=== PATIENT | male | born 1945 | race Caucasian/White ===

== ENCOUNTER 2016-12-25 20:56 | Inpatient (IN) | payer MEDICARE, BC ==
[~2016-12-25] VITALS: Ht 180.3 cm; Wt 84.3 kg
[2016-12-25] MEDS ORDERED: LEVOTAB10 PO (21:24)
[2016-12-25] MEDS ORDERED: SIMV20TA2 PO (21:24)
[2016-12-25] MEDS ORDERED: AMLO5TAB2 PO (21:24)
[2016-12-25] MEDS ORDERED: LEVO125T3 PO (21:24)
[2016-12-25] MEDS ORDERED: ESCI20TA PO (21:24)
[2016-12-25] MEDS ORDERED: COMBAER6 INH (21:24)
[2016-12-25] MEDS ORDERED: AZEL0.055 (21:24)
[2016-12-25] MEDS ORDERED: LOSA50TA20 PO (21:24)
[2016-12-25] MEDS ORDERED: MORPHINE 2 MG/ML 1ML SYRINGE IM ONE (21:30)
--- NOTE | 2016-12-25 22:50 | REPUSA ---
CT of the head Clinical history: trauma. Technique: Multiple axial CT images were obtained through the head without administration of contrast . Findings: The ventricles and sulci are symmetric bilaterally. There is no evidence of acute hemorrhag e or infarct. There is no midline shift, mass effect, or extra-axial fluid collection. The osseous st ructures are unremarkable. The visualized paranasal sinuses and mastoid air cells are clear. Impression: Negative study.
--- NOTE | 2016-12-25 23:00 | REPUSA ---
CT of the cervical spine Clinical history: Pain. Technique: Multiple axial CT images were obtained through the cervical spine without administration o f contrast. Coronal and sagittal 3-D reconstructed images were also obtained. Comparison: None. Findings: The cervical vertebral bodies are in satisfactory positioning and alignment. No fractures or dislocat ions are demonstrated. The odontoid process is intact. Intervertebral disc spaces are early narrowed at C4/C5, C5/C6, and C6/C7. Disc osteophyte complexes are noted at these levels. There is no evidence of facet subluxation. The neural foramen appear grossly patent. The cervical cranial junction is int act. The cervical spinal canal demonstrates normal caliber and contour without evidence of spinal isadora nosis. The surrounding soft tissues are within normal limits. Impression: No acute fracture or traumatic injury. Just osteophyte complexes with degenerative disc d isease at C4/C5, C5/C6, and C6/C7.
[2016-12-25] MEDS ORDERED: NORCO, ANEXSIA 5/325MG TABLET (HYDROcodone/ACETAMINOPHEN) PO ONE (23:15)
[2016-12-25] MEDS ORDERED: HYDROmorphone HCL 1 MG/ML SYRINGE (J1170) IM ONE (23:30)
[2016-12-26] VITALS (8 sets, daily range): BP systolic 113–142; BP diastolic 75–95
[2016-12-26] MEDS ORDERED: NALOXONE INJ 2 MG/2 ML SYRINGE (J2310) IV STA (00:49)
[2016-12-26 01:20] LABS: BASO # 0.1 K/mm3 (0.0-0.2); BASO % 0.7 % (0.0-1.0); EOS # 0.1 K/mm3 (0.0-0.50); EOS % 0.6 % (0.0-3.0); LARGE UNSTAINED CELL # 0.2 K/mm3 (0.0-0.4); LARGE UNSTAINED CELL % 1.1 % (0.0-4.0); LYMPH # 1.4 K/mm3 (1.5-4.5); LYMPH % 10.7 % (24.0-44.0); MEAN CORPUSCULAR HEMOGLOBIN 31.5 pg (27.0-33.0); MEAN CORPUSCULAR HGB CONC 33.8 g/dl (32.0-36.5); MEAN CORPUSCULAR VOLUME 93.3 fl (80.0-96.0); MONO # 0.6 K/mm3 (0.0-0.8); MONO % 4.5 % (0.0-5.0); NEUTROPHILS # 11.1 K/mm3 (1.8-7.7); NEUTROPHILS % 82.4 % (36.0-66.0); PLATELET COUNT, AUTOMATED 303 k/mm3 (150-450); RED CELL DISTRIBUTION WIDTH 12.9 % (11.5-14.5); WHITE BLOOD COUNT 13.4 K/mm3 (4.0-10.0)
[2016-12-26 01:46] LABS: ALBUMIN/GLOBULIN RATIO 1.14 (1.00-1.93); ALKALINE PHOSPHATASE 86 U/L (45-117); ALT/SGPT 43 U/L (12-78); ANION GAP 9 MEQ/L (8-16); AST/SGOT 49 U/L (15-37); BILIRUBIN,DIRECT 0.1 MG/DL (0.0-0.2); BILIRUBIN,TOTAL 0.4 MG/DL (0.2-1.0); BLOOD UREA NITROGEN 12 MG/DL (7-18); CALCIUM LEVEL 8.2 MG/DL (8.8-10.2); CARBON DIOXIDE LEVEL 29 MEQ/L (21-32); CHLORIDE LEVEL 103 MEQ/L (98-107); CREATININE FOR GFR 0.94 MG/DL (0.70-1.30); GLOMERULAR FILTRATION RATE > 60.0 (>42); GLUCOSE, FASTING 151 MG/DL (83-110); POTASSIUM SERUM 4.3 MEQ/L (3.5-5.1); SODIUM LEVEL 141 MEQ/L (136-145); TOTAL PROTEIN 7.5 GM/DL (6.4-8.2)
[2016-12-26] MEDS ORDERED: BISACODYL 5 MG TAB PO PRN (03:00)
[2016-12-26] MEDS ORDERED: ONDANSETRON 4MG/2ML VIAL (J2405) IV PRN (03:00)
[2016-12-26] MEDS ORDERED: ACETAMINOPHEN TAB 650MG DOSE (2X325MG) PO PRN (03:00)
[2016-12-26] MEDS ORDERED: IPRATROPIUM 0.5MG/ALBUTEROL 2.5MG INH SOL UD 3ML (DUONEB)(J7620) INH PRN (03:15)
[2016-12-26] MEDS: PERCOCET 5MG/325MG TAB PO PRN ×4 (03:52→22:10)
--- NOTE | 2016-12-26 05:13 | HPE ---
DATE OF ADMISSION: 12/26/2016 PRIMARY CARE PROVIDER: Elidia Cedillo DO. Patient is seen by orthopedics in [place] for knee injection. CODE STATUS: FULL CODE. CHIEF COMPLAINT: One episode of syncope and head trauma due to the fall. HISTORY OF PRESENT ILLNESS: Mr. Rodrigez is a 71-year-old male with multiple past medical history who presented to the emergency room (ER) due to experiencing one episode of syncope when he had severe cough. Patient is accompanied by his , who expressed that patient had several episodes of syncope in the past 2 years and all happening with the coughing; however, the reason that patient came today because he "hit his head to the door when he fell". Patient's said before the syncope episode he was sitting on the couch and watching television when coughing started. Patient stood up to go the bathroom; however, patient expressed that he lost his consciousness. Patient's cannot remember exactly how long, but it was several minutes. After patient gained his consciousness, the first question that he asked was "where am I", but he immediately became oriented. Patient denies chest pain, palpitations, racing or skipping heartbeat, lightheadedness or dizziness before the syncopal episode; however, patient expressed that after having cough, he became lightheaded and he believes that the coughing caused him to lose his consciousness. Patient also denied having any seizure type activities and his did not notice any seizure type activity. Patient did not lose his bowel or bladder control. Patient did not have fever, chills or night sweats. Patient reported pain in the back of the skull and posterior area of the skull and the neck area after the fall. Pain is 7/10, stationary and increased by patient sitting forward or standing. Therefore, patient preferred to lay down. PAST MEDICAL HISTORY: 1. Chronic obstructive pulmonary disease (COPD). 2. Hypothyroidism. 3. Depression. 4. Anxiety. 5. Hypertension. 6. Hyperlipidemia. 7. Prostate cancer. PAST SURGICAL HISTORY: Prostate surgery. HOME MEDICATIONS: - Combivent one puff inhaler four times a day as needed for shortness of breath - amlodipine besylate 5 mg by mouth nightly - azelastine two sprays nasally daily - escitalopram 20 mg by mouth daily - levocetirizine 5 mg by mouth nightly - Synthroid 125 mcg by mouth daily - losartan 50 mg by mouth nightly - simvastatin 20 mg by mouth nightly ALLERGIES: No known drug allergies. FAMILY HISTORY: Patient has two daughters. One of his daughters had subarachnoid hemorrhage. Patient has five brothers and sisters, who are healthy for their age. Patient's mother at age 78. Patient's father at age 46 due to heart disease. REVIEW OF SYSTEMS: GENERAL: Patient denies fevers, chills, night sweats. HEENT: Patient denies acute vision or hearing changes; however, patient has pain in the posterior area of the skull, as well as neck and shoulder due to the fall and also patient has some sinusitis. NECK: Patient denies lumps, bumps or decreased range of motion of his neck. LUNGS: Patient denies shortness of breath; however, patient has chronic productive cough due to COPD. Patient expressed that sputum is clear and sometimes yellow. HEART: Patient denies palpitations or racing or skipping heartbeat or chest pain. ABDOMEN: Patient denies abdominal pain, nausea, vomiting, diarrhea, constipation, melena, hematochezia, or hemoptysis. NEUROLOGIC: Patient denies a history of transient ischemic attack (TIA), CVA, or seizure type activities. PHYSICAL EXAMINATION: VITAL SIGNS: Temperature 98.2, pulse 84, respiratory rate 18, blood pressure 134/82, pulse oximetry 92% on room air. HEENT: Normocephalic, atraumatic. No bruises or erythema in the skull or neck area. Pupils are equal and reactive to light. Oral mucosa is moist. NECK: Soft, supple. The patient has mild tenderness to palpation of the neck posteriorly around C2 to C6. LUNGS: Patient has scattered rhonchi at the base of the lung. Both inhale and exhale mild wheezing. HEART: Regular rate and rhythm. Normal S1, S2. ABDOMEN: Soft, nontender, positive bowel sounds in all quadrants. NEUROLOGICAL: Cranial nerves II-XII intact. No focal deficiencies. EXTREMITIES: No lower extremity edema, +2 pulses in both upper and lower extremities. Normal range of motion both upper and lower extremities. LABORATORY DATA: Sodium 141, potassium 4.3, chloride 103, carbon dioxide 29, anion gap 9, BUN 12, creatinine 0.94, glomerular filtration rate more than 60, fasting glucose 151, calcium 8.2, total bilirubin 0.4, direct bilirubin 1.1, AST 49, ALT 43, alkaline phosphatase 86, ammonia 19, troponin I less than 0.02, total protein 7.5, albumin 4. White blood cells 13.4, red blood cells 4.93, hemoglobin 15.5, hematocrit 46, MCV 93.3, MCH 31.5, MCHC 33.8, RDW 12.9, platelet count 330. Neutrophil percentage 82.4, lymphocyte percentage 10.7, monocyte percentage 4.5, eosinophil percentage 0.6, basophil percentage 0.7, leukocyte percentage 1.1. IMAGING TECHNIQUES: CT of the head without contrast was negative for any new pathology. CT of spine, cervical without contrast, shows no acute fracture or trauma injuries, just osteophyte complexes with degenerative disc disease at C4-C5, C5-C6 and C6-C7. ASSESSMENT AND PLAN: 1. Syncope. This is possibly vasovagal due to severe coughing; however, due to the possibility including cardiac and neurological abnormalities, we have ordered cardiac markers and the first set of cardiac markers was negative. Also, I have ordered EKG and the result is pending at this time. CT was negative for any new pathology. I have ordered MRI/MRA and the result is pending at this time. also I have ordered orthostatic vital and the result is pending. Patient will be admitted for observation. 2. Chronic obstructive pulmonary disease (COPD). At this time, we will continue patient on his current breathing treatments. Patient is on room air at this time and his symptoms are controlled. No further medication is required at this time. 3. Hypothyroidism. We will continue patient on home dosage of Synthroid (0.125 mg by mouth daily). 4. Depression and anxiety. We will continue patient on Lexapro 20 mg daily. 5. Hypertension. We will continue patient on Norvasc 5 mg nightly and Cozaar 50 by mouth nightly. 6. Hyperlipidemia. We will continue patient on Zocor 20 mg nightly. 7. Deep venous thrombosis (DVT) prophylaxis. I have started the patient on Lovenox 40 mg subcutaneously daily. My preceptor for this patient encounter was Dr. Ji Olmos. The preceptor was physically present in the building during the encounter and was fully available as needed. All aspects of the patient interview, examination, medical decision making process, and medical care plan development were reviewed and approved by the preceptor. The preceptor is aware and concurs with the plan as stated in the body of this note and will attest to such by his/her co-signature. NICOLE
[2016-12-26] MEDS: LEVOTHYROXINE 0.125 MG TAB (125 MCG) PO SCH (05:15)
[2016-12-26] MEDS: NS 0.45% 1,000 ML IV SCH ×2 (06:45→22:09)
[2016-12-26] MEDS: ENOXAPARIN 40 MG/0.4 ML SYRINGE (J1650) SC SCH (08:23)
[2016-12-26] MEDS: ESCITALOPRAM OXALATE 10 MG TAB (LEXAPRO) PO SCH (08:24)
[2016-12-26 09:55] LABS: PROLACTIN 24.1 NG/ML (2.1-17.7)
--- NOTE | 2016-12-26 10:19 | REP ---
MR BRAIN WITHOUT CONTRAST: HISTORY: Syncope. COMPARISON: CT 12/25/2016 Areas of increased signal intensity on T2-weighed images are present in the periventricular and subcortical white matter and darius. This represents small vessel ischemic disease. There is no intraparenchymal hemorrhage, infarct, mass or midline shift. The ventricular system and cortical sulci are dilated consistent with minimal volume loss. There is no extracerebral collection. The sinuses are clear. IMPRESSION: 1. Small vessel ischemic disease. 2. Minimal volume loss. Signed by Nazario Sinclair MD 12/26/2016 11:07 A
--- NOTE | 2016-12-26 10:21 | REP ---
MRA BRAIN WITHOUT CONTRAST: HISTORY: Syncope. 3D [id number] MR angiography was performed at the level of the [place]. There is no aneurysm or arteriovenous malformation. Mild atherosclerotic disease involves the cavernous internal carotid arteries. The major intracranial vessels are patent. The left vertebral artery is dominant. IMPRESSION: 1. There is no aneurysm or arteriovenous malformation. 2. Atherosclerotic disease as described above. Signed by Nazario Sinclair MD 12/26/2016 11:07 A
--- NOTE | 2016-12-26 13:42 | IPN ---
DATE: 12/26/2016 Patient seen and examined at the bedside. Chart has been reviewed. He had no repeat episodes of syncopal episodes overnight, no seizure activity. Telemetry was unremarkable and remains sinus rhythm. Ventricular rate of 76-88. Per the patient has a chronic cough and had a coughing spell yesterday, unchanged from his normal and had a syncopal episode, loss of consciousness for a few minutes after hitting his head and hit his head against the back of the door. He had a quick period of confusion and was asking where he was, but came around quickly. He was brought into the emergency room. EKG was unremarkable and telemetry was unremarkable over night. CT of the head negative for acute CVA. Cervical spine CT shows no acute fracture. Patient is admitted for further evaluation of syncopal episode. He currently has no complaints of chest pain, pressure, or tightness, palpitations, lightheadedness or dizziness. He had a chronic cough which is productive of white sputum. No recent weight gain or weight loss, diarrhea, constipation, dysuria, urgency, frequency, changes in vision, ear fullness. Temperature 99.5, pulse 77, respiratory rate 18, blood pressure 113/88, 98% on room air. GENERALLY: Patient is awake, alert, oriented times three. Answering questions appropriately. Face is symmetric. No facial drooping. Tongue is midline. No dysmetria on finger to nose testing. Speech is fluent. Motor function is 5/5 time four extremities. Gait was not tested. No sensory disturbance. DTRs are intact 2+. Negative Babinski bilaterally. LUNGS: Clear to auscultation; no wheezing, rales, or rhonchi. HEART: S1, S2, sinus rhythm. ABDOMEN: Soft, nontender, nondistended, positive bowel sounds. EXTREMITIES: No pitting edema. White count 13, hemoglobin 15, hematocrit 46, platelet count 303, sodium 141, potassium 4.3, chloride 103, bicarbonate 29, BUN 12, creatinine 0.94, glucose of 151, calcium 8.2, total bilirubin 0.4, direct bilirubin 0.1, AST 49, ALT 43, alkaline phosphatase 86, ammonia of 19, total CK 2144 and B fraction is 55, troponin less than 0.02, prolactin 24.1. IMAGING STUDIES: MRI of the brain small vessel ischemic disease, minimal volume loss. MRA shows no aneurysm, atherosclerotic disease as described. ASSESSMENT AND PLAN: This is a 71-year-old male with history of chronic obstructive pulmonary artery disease (COPD), hypothyroidism, depression, anxiety, hypertension, hyperlipidemia, prostate cancer, prostate surgery who presents to the emergency room after a syncopal episode. Patient had an episode of severe cough accompanied with passing out, hitting his head on the door when he fell, with loss of consciousness of unknown duration. Patient denies any prodromal symptoms, was admitted for evaluation of syncopal episode. EKG was unremarkable, it showed sinus rhythm. CT of the head and cervical spine were unremarkable aside from chronic degenerative disc disease. MRI/MRA of the brain are negative. Prolactin slightly elevated. EEG has been ordered. Cardiac marker shows mild rhabdomyolysis. Echo is pending. IMPRESSION: 1. Syncope. Most likely vasovagal due to severe coughing. Continue with telemetry monitoring for 24-48 hours. Currently no arrhythmias are noted on telemetry, remains in sinus rhythm. Await echocardiogram report to rule out valvular disease or cause of patient's passing out. He denies any dizziness or lightheadedness. MRI/MRA of the brain are negative. Patient had loss of consciousness with confusion. EEG will be obtained as prolactin level is elevated. Should the EEG be abnormal or recurrent episode of syncopal episode with question of seizures we will consult neurology for antiepileptic medications. For now, I will await results of the EEG. 2. Chronic obstructive pulmonary artery disease (COPD). Continue on current breathing treatments. Appears to be comfortable on room air. No further medications required. Does not appear to be exhibiting exacerbation of chronic obstructive pulmonary artery disease (COPD). 3. Hypothyroidism. Resume home dose of Synthroid 0.125 daily. 4. Depression/anxiety. On Lexapro 20 daily. 5. Hypertension. Stable. Continue Norvasc and Cozaar. 6. Mild rhabdomyolysis. Mild hydration. Monitor patient's creatinine with repeat metabolic panel. If patient has worsening creatinine then we will discontinue patient's Cozaar and continue with IV fluid trial. 7. Hyperlipidemia. On Zocor. 8. Deep venous thrombosis (DVT) prophylaxis. On Lovenox.
--- NOTE | 2016-12-26 16:12 | ECHO ---
DATE OF PROCEDURE: 12/26/2016 REFERRING PHYSICIAN: Dr. Kathy Barrientos INDICATION: Syncope. HEIGHT: 180 cm. WEIGHT: 85.1 kg. 2D MEASUREMENTS: Aortic root: 4.0 cm at the level of the Vals[place] Left atrium: 3.1 cm Ventricular septum: 1.30 cm Posterior wall: 1.32 cm Left ventricle diastole: 4.2 cm Left ventricle systole: 2.2 cm Mild aortic regurgitation Aortic valve velocity 156 cm/s LVOT velocity: 109 cm/s LVOT/VTI: 20.5 cm Mitral E velocity: 73.4 cm/s Mitral A velocity: 101 cm/s Mitral deceleration time: 246 ms Very mild tricuspid regurgitation Estimated right ventricle systolic pressure 24 mmHg assuming a pressure of 5 mmHg. Very mild pulmonic regurgitation. Pulmonary artery systolic pressure 30 mmHg by pulmonary acceleration time method. MITRAL ANNULAR TISSUE DOPPLER: E-prime septal: 6.3 cm/s E-prime lateral: 1.0 cm/s DESCRIPTION: Rhythm was sinus. This is a moderately technically difficult echocardiogram. No pericardial effusion. This is a 2D, m-mode, color flow Doppler, and pulsed wave Doppler examination include mitral annular tissue Doppler. CONCLUSIONS: 1. Mild concentric left ventricle hypertrophy. Hyperdynamic left ventricle (LV) systolic function. Left ventricle ejection fraction (LVEF) 70% by visual estimate. No regional wall motion abnormalities. Grade 1 LV diastolic dysfunction (impaired relaxation filling pattern). 2. Mild dilatation of the aortic root at the level of the level Valsalva. 3. Mild aortic valve sclerosis of a three-cuspid aortic valve. Very mild aortic regurgitation. 4. Mild mitral annular calcification. No mitral regurgitation.
--- NOTE | 2016-12-26 17:47 | REP ---
CHEST, TWO VIEWS: Two views of the chest are performed and compared to prior study of 08/06/2011. There is mild scattered interstitial fibrosis without evidence of acute infiltrate. The heart is not significantly enlarged. Mediastinal silhouette is unchanged. There are mild degenerative changes of the spine. IMPRESSION: Mild chronic interstitial changes without evidence of acute infiltrate. Signed by Eric Pedersen MD 12/30/2016 03:58 P
[2016-12-26] MEDS: SIMVASTATIN 20 MG TAB PO SCH (22:10)
[2016-12-26] MEDS: amLODIPine 5 MG TAB PO SCH (22:12)
[2016-12-26] MEDS: LOSARTAN 50 MG TAB PO SCH (22:13)
--- NOTE | 2016-12-26 23:27 | ECGEPIP ---
Stationary ECG Study [facility] Test Date: 2016-12-26 Pat Name: RENETTA BATEMAN Department: Room: [place] [address] Gender: M [employer]: rosa : 1945 Requested By: CHARMAINE LOO Order Number: [id number] Reading MD: Heraclio Quesada Measurements Intervals Shiner Rate: 78 P: -14 AL: 123 QRS: 28 QRSD: 90 T: 71 QT: 358 QTc: 409 Interpretive Statements SINUS RHYTHM NO PRIOR TRACING IN THE SYSTEM Electronically Signed On 12-26-2016 23:26:47 EDT by Heraclio Quesada
[2016-12-27] VITALS: BP 130/80
[2016-12-27] MEDS: PERCOCET 5MG/325MG TAB PO PRN ×5 (03:55→20:19)
[2016-12-27 04:00] VITALS: BP 140/70
[2016-12-27 05:15] LABS: BASO # 0.1 K/mm3 (0.0-0.2); BASO % 0.8 % (0.0-1.0); EOS # 0.2 K/mm3 (0.0-0.50); EOS % 2.1 % (0.0-3.0); LARGE UNSTAINED CELL # 0.2 K/mm3 (0.0-0.4); LARGE UNSTAINED CELL % 2.1 % (0.0-4.0); LYMPH # 1.7 K/mm3 (1.5-4.5); LYMPH % 21.1 % (24.0-44.0); MEAN CORPUSCULAR HEMOGLOBIN 31.5 pg (27.0-33.0); MEAN CORPUSCULAR VOLUME 92.6 fl (80.0-96.0); MONO # 0.6 K/mm3 (0.0-0.8); MONO % 7.2 % (0.0-5.0); NEUTROPHILS # 5.4 K/mm3 (1.8-7.7); NEUTROPHILS % 66.7 % (36.0-66.0); PLATELET COUNT, AUTOMATED 240 k/mm3 (150-450); RED CELL DISTRIBUTION WIDTH 13.1 % (11.5-14.5)
[2016-12-27 05:32] LABS: ANION GAP 8 MEQ/L (8-16); BLOOD UREA NITROGEN 12 MG/DL (7-18); CALCIUM LEVEL 8.4 MG/DL (8.8-10.2); CARBON DIOXIDE LEVEL 27 MEQ/L (21-32); CHLORIDE LEVEL 104 MEQ/L (98-107); CREATININE FOR GFR 0.71 MG/DL (0.70-1.30); GLOMERULAR FILTRATION RATE > 60.0 (>42); GLUCOSE, FASTING 117 MG/DL (83-110); POTASSIUM SERUM 3.8 MEQ/L (3.5-5.1); SODIUM LEVEL 139 MEQ/L (136-145)
[2016-12-27] MEDS: LEVOTHYROXINE 0.125 MG TAB (125 MCG) PO SCH (06:12)
[2016-12-27 07:30] VITALS: BP 150/92
[2016-12-27] MEDS: ESCITALOPRAM OXALATE 10 MG TAB (LEXAPRO) PO SCH (07:55)
[2016-12-27] MEDS: ENOXAPARIN 40 MG/0.4 ML SYRINGE (J1650) SC SCH (07:56)
--- NOTE | 2016-12-27 08:51 | EEG ---
DATE OF PROCEDURE: 12/26/2016 REFERRING PROVIDER: Dr. Kathy Barrientos DIAGNOSIS: Syncope. EEG NUMBER: [id number] INTERPRETATION: The patient is a 71-year-old man with syncope after severe cough. This EEG was done to rule out epileptic potential. He is currently taking amlodipine, Lexapro, simvastatin, losartan, morphine, Dilaudid, etc. TECHNICAL DESCRIPTION: This digital EEG was recorded by 21 scalp, ear, and two EKG electrodes and was reviewed in bipolar and referential montages following reformatting in 10-20 international electrode placement system. INTERPRETATION: The patient was noted to be mostly in drowsy state during this EEG. Background rhythm consisted of 6-7 Hz theta activity measuring 15-40 microvolts in amplitude. Stage I and II sleep were reviewed and were symmetric bilaterally. Hyperventilation could not be performed. Photic stimulation remained unremarkable. EKG revealed normal sinus rhythm. No focal, lateralizing or epileptiform abnormalities were seen. No clinical or electrographic seizures were recorded. CONCLUSION: This EEG in awake, drowsy states, stage I and II sleep is mildly abnormal due to presence of mild generalized slowing consistent with nonspecific diffuse cerebral dysfunction such as seen in mild encephalopathy due to multiple potential causes including toxic, metabolic, infectious, autoimmune, or multifocal structural brain abnormalities. No epileptiform abnormalities were seen. Clinical correlation is recommended. edited: 12/29/2016 0922 tkf NICOLE
[2016-12-27] MEDS: LIDOCAINE 5% OINT 30 GM TOP SCH ×2 (09:00→20:18)
[2016-12-27] MEDS ORDERED: KETOROLAC 30 MG/ML VIAL (J1885) IV ONE (10:00)
[2016-12-27] MEDS ORDERED: PERCOCET 5MG/325MG TAB PO ONE (11:45)
[2016-12-27 14:00] VITALS: BP 144/74
--- NOTE | 2016-12-27 15:27 | IPN ---
DATE: 12/27/2016 Patient seen and examined at the bedside. Chart has been reviewed. This morning patient has no complaints. No dizziness, lightheadedness. He still persistently complains of neck pain status post trauma after falling backward when he passed out. VITAL SIGNS: Temperature 98.9, pulse 91, respiratory rate 18, blood pressure 150/92, 96% on room air. HEENT: Pupils are equally round and reactive to light and accommodation. Extraocular muscles are intact. Normocephalic, atraumatic. Neck is tender on palpation. Limited range of motion due to severe pain. No neck rigidity. LUNGS: Clear to auscultation. No wheezes, rales, or rhonchi. HEART: S1, S2, sinus rhythm. ABDOMEN: Soft, nontender, nondistended. Positive bowel sounds. EXTREMITIES: No pitting edema. LABORATORY DATA: White count 18, hemoglobin 14, hematocrit 43, platelet count 240, neutrophils 56. Sodium 139, potassium 3.8, chloride 104, bicarbonate 27, BUN 12, creatinine 0.7, glucose of 117. Total CK 1977. Electroencephalogram (EEG): No epileptiform activity. No clinical or electrographic seizures were reported. Mild slowing consistent with nonspecific diffuse cerebral dysfunction. Differential includes toxic metabolic infection, autoimmune multifocal structural brain abnormalities. ASSESSMENT AND PLAN: This is a 71-year-old male who lives alone with his . History of chronic obstructive pulmonary disease (COPD), hypothyroidism, depression, anxiety, hypertension, hyperlipidemia, prostate cancer (CA), prostate surgery, presented to the emergency room (ER) after a syncope episode after a coughing spell. Hit his head on the floor when lost consciousness for an unknown duration. He denies any prodromal symptoms. Admitted for evaluation for syncopal episode. EKG shows sinus rhythm. CT of the head/spine were unremarkable with chronic degenerative disc disease. MRI/MRA of the brain are negative. Prolactin slightly elevated. EEG shows no acute epileptiform activity. Cardiac markers show mild rhabdomyolysis. Echo shows diastolic dysfunction, grade 1. No valvular disorder. IMPRESSION: Vasovagal syncope due to severe coughing. Telemetry was unremarkable. May transfer to medical/surgical floor. Echocardiogram showed no significant valvular disease. No stenosis or severe regurgitation. MRI/MRA of the brain are negative. EEG was normal. Showed no epileptiform activity. There was some slowing, which could be metabolic and nonspecific. No antiseizure medications will be given. For now, patient is back to baseline. 2. Neck pain status post trauma. Lidocaine patch and as-needed Percocet. Await physical therapy (PT) clearance prior to discharge home. 3. Chronic obstructive pulmonary disease (COPD). Continue on current breathing treatments. Comfortable on room air. No exacerbation of sputum production. No cough. 4. Hypothyroidism. Resume Synthroid. 5. Depression and anxiety, on Lexapro. 6. Hypertension. Norvasc and Cozaar, uncontrolled secondary to pain; therefore, control the pain. 7. Mild rhabdomyolysis. Mild hydration. Monitor patient's creatinine since he is on Cozaar. Is to continue Cozaar if worsening creatinine level. 8. Hyperlipidemia, on Zocor. 9. Deep vein thrombosis (DVT) prophylaxis, on subcutaneous Lovenox. DISPOSITION: Patient has not been cleared by physical therapy. May transfer to medical/surgical floor. Discharge home once cleared by physical therapy.
[2016-12-27] MEDS: amLODIPine 5 MG TAB PO SCH (20:18)
[2016-12-27] MEDS: SIMVASTATIN 20 MG TAB PO SCH (20:18)
[2016-12-27] MEDS: LOSARTAN 50 MG TAB PO SCH (20:18)
[2016-12-27 22:00] VITALS: BP 140/80
[2016-12-28] MEDS: PERCOCET 5MG/325MG TAB PO PRN ×3 (00:20→17:11)
[2016-12-28] MEDS: LEVOTHYROXINE 0.125 MG TAB (125 MCG) PO SCH (04:22)
[2016-12-28 06:00] VITALS: BP 146/85
[2016-12-28 06:09] LABS: BASO # 0.1 K/mm3 (0.0-0.2); EOS # 0.2 K/mm3 (0.0-0.50); EOS % 2.1 % (0.0-3.0); LARGE UNSTAINED CELL # 0.2 K/mm3 (0.0-0.4); LARGE UNSTAINED CELL % 1.8 % (0.0-4.0); LYMPH # 1.8 K/mm3 (1.5-4.5); LYMPH % 17.5 % (24.0-44.0); MEAN CORPUSCULAR HGB CONC 34.5 g/dl (32.0-36.5); MEAN CORPUSCULAR VOLUME 89.9 fl (80.0-96.0); MONO # 0.7 K/mm3 (0.0-0.8); MONO % 7.6 % (0.0-5.0); NEUTROPHILS # 6.5 K/mm3 (1.8-7.7); PLATELET COUNT, AUTOMATED 265 k/mm3 (150-450); RED CELL DISTRIBUTION WIDTH 13.2 % (11.5-14.5); WHITE BLOOD COUNT 9.2 K/mm3 (4.0-10.0)
[2016-12-28 06:28] LABS: ANION GAP 8 MEQ/L (8-16); BLOOD UREA NITROGEN 16 MG/DL (7-18); CALCIUM LEVEL 8.6 MG/DL (8.8-10.2); CARBON DIOXIDE LEVEL 26 MEQ/L (21-32); CHLORIDE LEVEL 103 MEQ/L (98-107); CREATININE FOR GFR 0.75 MG/DL (0.70-1.30); GLOMERULAR FILTRATION RATE > 60.0 (>42); GLUCOSE, FASTING 105 MG/DL (83-110); POTASSIUM SERUM 3.9 MEQ/L (3.5-5.1); SODIUM LEVEL 137 MEQ/L (136-145)
[2016-12-28] MEDS ORDERED: PERCOCET 5MG/325MG TAB PO ONE (07:30)
[2016-12-28] MEDS ORDERED: KETOROLAC 30 MG/ML VIAL (J1885) IV ONE (07:30)
[2016-12-28] MEDS ORDERED: NS 1,000 ML IV SCH (07:30)
[2016-12-28] MEDS: ESCITALOPRAM OXALATE 10 MG TAB (LEXAPRO) PO SCH (08:04)
[2016-12-28] MEDS: PERCOCET 5MG/325MG TAB PO SCH ×3 (08:04→20:44)
[2016-12-28] MEDS: ENOXAPARIN 40 MG/0.4 ML SYRINGE (J1650) SC SCH (08:05)
[2016-12-28] MEDS: LIDOCAINE 5% OINT 30 GM TOP SCH (08:05)
[2016-12-28] MEDS ORDERED: CYCLOBENZAPRINE 5MG TABLET PO ONE (11:00)
[2016-12-28] MEDS: ANALGESIC BALM CRM 120 GM TOP SCH ×3 (12:22→20:47)
[2016-12-28] MEDS: LOSARTAN 50 MG TAB PO SCH (20:46)
[2016-12-28] MEDS: SIMVASTATIN 20 MG TAB PO SCH (20:46)
[2016-12-28] MEDS: amLODIPine 5 MG TAB PO SCH (20:46)
--- NOTE | 2016-12-28 20:54 | IPN ---
DATE: 12/28/2016 Patient is seen and examined at the bedside. Chart has been reviewed. This morning, patient still rates his pain as 6/10, able to turn his head from side to side. No dizziness or lightheadedness. Cannot ambulate due to severe pain when he stands up. MRI of the brain is negative. Cervical spine CT is negative for acute fracture or dislocation. He has chronic degenerative disc changes with osteophyte complexes at C4-C7. No evidence of subluxation, intravertebral disease or shows early narrowing. Patient did not pass the home safety evaluation due to complaints of severe pain. Patient had been given as needed Percocet with lidocaine with no improvement; Toradol slight improvement. VITAL SIGNS: Temperature 98.4, pulse 91, respiratory rate 18, blood pressure 146/85, 96% on room air. GENERAL: Patient is awake, alert, oriented times three. Pupils are round and reactive to light and accommodation. Extraocular muscles are intact. Normocephalic, atraumatic. NECK: Supple, able to flex and extend with no significant difficulty. There is point tenderness around C3-C7. Motor function bilateral upper and lower extremities are 5/5. Gait was not tested. LUNGS: Clear to auscultation. No wheezing, rales, or rhonchi. HEART: S1, S2, sinus rhythm. ABDOMEN: Soft, nontender, nondistended. EXTREMITIES: No pitting edema. Laboratory data, imaging studies, EEG, have been reviewed. ASSESSMENT AND PLAN: 71-year-old male who lives with his , history of chronic obstructive pulmonary disease (COPD), prostate cancer, hypothyroidism, depression and anxiety, hyperlipidemia, presented with a syncopal episode after a coughing spell, hit his head on the door with loss of consciousness, unknown duration. MRI/MRA of the brain are negative. CT of cervical spine shows no acute fracture or dislocation. EEG shows no acute epileptic form of activity. Cardiac markers show mild rhabdomyolysis. Patient is being given IV fluids. Unable to be discharged due to severe neck pain and has not passed a home safety evaluation. CURRENT ISSUES: 1. Vasovagal syncope due to severe coughing. Telemetry was unremarkable. Patient is being transferred to medical/surgical floor. Echo shows no valvular disease to explain the reason of the syncopal episode. MRI/MRA are negative. EEG shows no epileptic form of activity, some slowing which was nonspecific. No antiseizure medications given. 2. Neck pain status post trauma. Lidocaine does not work, therefore currently on Ágnel Cooney. Physical therapy (PT) and pain management has been consulted. 3. Chronic obstructive pulmonary disease (COPD). Continue on nebulizers. No exacerbation, sputum production. 4. Hypothyroidism, on Synthroid. 5. Depression and anxiety, chronic, on Lexapro. 6. Hypertension, on Norvasc and Cozaar. 7. Mild rhabdomyolysis. Mild hydration. 8. Hyperlipidemia, on Zocor. DISPOSITION: The patient has not passed home safety evaluation.
[2016-12-28 22:00] VITALS: BP 159/82
[2016-12-29] MEDS: PERCOCET 5MG/325MG TAB PO PRN ×3 (00:30→15:02)
[2016-12-29] MEDS: CYCLOBENZAPRINE 5MG TABLET PO PRN ×2 (00:30→15:02)
[2016-12-29] MEDS: LEVOTHYROXINE 0.125 MG TAB (125 MCG) PO SCH (05:56)
[2016-12-29 06:00] VITALS: BP 136/81
[2016-12-29 06:48] LABS: BASO % 0.7 % (0.0-1.0); EOS # 0.3 K/mm3 (0.0-0.50); EOS % 4.1 % (0.0-3.0); LARGE UNSTAINED CELL # 0.3 K/mm3 (0.0-0.4); LARGE UNSTAINED CELL % 3.6 % (0.0-4.0); LYMPH # 1.7 K/mm3 (1.5-4.5); MEAN CORPUSCULAR HGB CONC 33.6 g/dl (32.0-36.5); MEAN CORPUSCULAR VOLUME 92.4 fl (80.0-96.0); MONO # 0.6 K/mm3 (0.0-0.8); MONO % 8.1 % (0.0-5.0); NEUTROPHILS # 4.5 K/mm3 (1.8-7.7); NEUTROPHILS % 60.5 % (36.0-66.0); PLATELET COUNT, AUTOMATED 289 k/mm3 (150-450); RED CELL DISTRIBUTION WIDTH 13.1 % (11.5-14.5); WHITE BLOOD COUNT 7.4 K/mm3 (4.0-10.0)
[2016-12-29 07:06] LABS: ANION GAP 6 MEQ/L (8-16); BLOOD UREA NITROGEN 20 MG/DL (7-18); CALCIUM LEVEL 8.1 MG/DL (8.8-10.2); CARBON DIOXIDE LEVEL 27 MEQ/L (21-32); CHLORIDE LEVEL 104 MEQ/L (98-107); CREATININE FOR GFR 0.71 MG/DL (0.70-1.30); GLOMERULAR FILTRATION RATE > 60.0 (>42); GLUCOSE, FASTING 94 MG/DL (83-110); POTASSIUM SERUM 3.7 MEQ/L (3.5-5.1); SODIUM LEVEL 137 MEQ/L (136-145)
[2016-12-29] MEDS: PERCOCET 5MG/325MG TAB PO SCH ×3 (08:11→20:24)
[2016-12-29] MEDS: ESCITALOPRAM OXALATE 10 MG TAB (LEXAPRO) PO SCH (08:12)
[2016-12-29] MEDS: ANALGESIC BALM CRM 120 GM TOP SCH ×4 (08:14→20:24)
[2016-12-29] MEDS: ENOXAPARIN 40 MG/0.4 ML SYRINGE (J1650) SC SCH (08:14)
[2016-12-29] MEDS ORDERED: CYCLOBENZAPRINE 10 MG TAB PO ONE (08:15)
--- NOTE | 2016-12-29 11:14 | IPN ---
DATE: 12/29/2016 The patient still complains of 6 out of 10 pain of his neck despite negative CT cervical spine. He is unable to ambulate as he tries to bear weight, the patient feels severe pain along the low back and neck. He complains of generalized weakness. 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 VITAL SIGNS: Temperature 98.1, pulse 78, respiratory 20, blood pressure 136/81, 90% on room air. Generally, he is awake, alert, oriented times three. Answers questions appropriately. No neck rigidity. Able to perform negative Kernig's sign. HEENT Normocephalic, atraumatic. Extraocular muscles intact. Able to flex/extend the neck. Some point tenderness at C4-5. Motor function bilateral upper extremities 5/5. Gait is not tested. Lungs are clear to auscultation. No wheezing, rales or rhonchi. HEART: S1, S2 sinus rhythm. ABDOMEN: Soft, nontender, nondistended. Positive bowel sounds times four quadrants. EXTREMITIES: No pitting edema. LABORATORY DATA: Imaging studies, EEG have been reviewed. ASSESSMENT/PLAN: 71-year-old male who lives with his , history of COPD, prostate cancer, hypothyroidism, depression and anxiety, hyperlipidemia, presented with a syncopal episode after a coughing spell, hit his head on the door, backwards with loss of consciousness for unknown duration. The patient's echo telemetry is unremarkable. MRI/MRA of the brain are negative for acute disease. CT of cervical spine shows no acute fracture or dislocation. EEG shows no acute epileptic form activity. Cardiac markers show mild rhabdomyolysis. Patient was given IV fluids, IV Toradol, Percocet, lidocaine ointment with no resolution currently with Beng[place] and Flexeril unable to be discharged due to severe neck pain and has not passed a home safety evaluation. CURRENT ISSUES: Persistent neck pain status post head trauma with loss of consciousness with complaints of generalized weakness and back pain. Will send for MRI of the cervical spine and lumbar spine. Physical therapy has been consulted and has not passed the patient due to severe pain and instability. Will consult pain management. Continue with Flexeril and Percocet. Vasovagal syncope: Telemetry was unremarkable. He remains in sinus rhythm, showed no valvular disease as a reason for his syncopal episode. MRI of the brain, MRA were negative. EEG showed no epileptiform activity with some flow which is nonspecific. No antiseizure medications have been given. No repeat syncopal episodes on the hospital. COPD on nebulizers. No exacerbation or sputum protection, fever, chills, shortness of breath. Hypothyroidism: On Synthroid. Depression and anxiety: Chronic on chronic Lexapro. Hypertension: Norvasc and Cozaar. Mild rhabdomyolysis: Mild hydration. Hyperlipidemia on Zocor. DISPOSITION: Unable to be discharged as the patient continues to complain of fever or pain. Pain management has been consulted. Physical therapy has not passed the patient for discharged home.
[2016-12-29 11:17] LABS: ALBUMIN 3.5 GM/DL (3.2-5.2); ALBUMIN/GLOBULIN RATIO 0.92 (1.00-1.93); ALKALINE PHOSPHATASE 56 U/L (45-117); ALT/SGPT 36 U/L (12-78); AST/SGOT 29 U/L (15-37); BILIRUBIN,DIRECT 0.2 MG/DL (0.0-0.2); BILIRUBIN,TOTAL 0.7 MG/DL (0.2-1.0); TOTAL PROTEIN 7.3 GM/DL (6.4-8.2)
[2016-12-29 14:00] VITALS: BP 127/83
--- NOTE | 2016-12-29 15:23 | REP ---
MRI LUMBAR SPINE WITHOUT CONTRAST: HISTORY: Lower extremity pain weakness. Injury in a fall. TECHNIQUE: Sagittal and axial T1 and T2-weighted scans are acquired in the usual fashion with and without fat saturation. Sequences include spin echo, turbo spin-echo, and STIR imaging sequences. MRI FINDINGS: Lumbar vertebral body heights are preserved. There is some straightening. No fracture or collapse is seen. There is moderate distension of the urinary bladder noted incidentally. Conus medullaris is normal in position and appearance at L1. No other extra vertebral abnormality is seen. Axial and sagittal images at L5-S1 show mild facet hypertrophy bilaterally. There is a small disc bulge left of midline in the posterior disc margin. No nerve root displacement or thecal sac compression is seen. At L4-5, there is minimal diffuse disc bulging. No other abnormality. L3-4, the disc is narrowed and shows decreased signal intensity. There is a right paracentral focal disc protrusion at L3-4, which indents the ventral margin of the thecal sac. No central canal stenosis or significant neural foraminal narrowing is seen at L3-4. L2-3, there is some decreased disc space height and signal intensity and minimal diffuse disc bulging. No central canal stenosis or neural foraminal lesion is seen. The L1-2 and T12-L1 levels are unremarkable. IMPRESSION: Right posterior disc protrusion at L3-4 with minimal thecal sac compression. Tiny left posterior disc bulge at the L5-S1. Facet hypertrophy bilaterally at L5-S1. No traumatic abnormality. Mild to moderate distension of the urinary bladder. Signed by Terry Shankar MD 12/29/2016 03:44 P
--- NOTE | 2016-12-29 15:44 | REP ---
MRI cervical spine: Incomplete exam. History: Neck pain and weakness. Status post trauma, syncope. The patient reports a fall against a door casing with increased neck and low back pain. Comparison CT study of the cervical spine is from December 25, 2016. Technique: Sagittal T2 turbo spin echo and T1 spin echo images are acquired. At this point, the patient was unable to finish the examination due to pain and it had to be terminated. MRI findings: Limited sagittal MR imaging demonstrates degenerative spondylosis in the cervical spine. There is a large hemangioma noted incidentally in the T3 vertebral body. Cortical and medullary bone signal intensity are otherwise normal. Degenerative spondylosis and straightening are seen most pronounced at C4-5, C5-6 and C6-7. There is posterior osteophytic ridging and diffuse disc bulging at C4-5. At C5-6, there is evidence of a moderate-sized central disc protrusion which appears to be compressing the cord. However, this does not appear to be new when compared with the January 04, 2017 study. There is evidence of central canal stenosis at C5-6 and to a lesser extent C4-5 and C6-7. Posterior osteophytic ridging is seen at C6-7 as well. No fracture or collapse is seen. Impression: Limited MRI study of the cervical spine, incomplete. 1. Large hemangioma T3. 2. No fracture or collapse. 3. Degenerative spondylosis C4 through C7. Central canal stenosis C4-5, C5-6 and C6-7.4. Moderate sized disc protrusion centrally at C5-6 producing cord compression. This appears to be chronic and unchanged from December 26, 2015 although it is incompletely seen. Signed by Terry Shankar MD 12/29/2016 03:43 P
[2016-12-29] MEDS: SIMVASTATIN 20 MG TAB PO SCH (20:23)
[2016-12-29] MEDS: amLODIPine 5 MG TAB PO SCH (20:23)
[2016-12-29] MEDS: LOSARTAN 50 MG TAB PO SCH (20:23)
[2016-12-29 22:00] VITALS: BP 114/78
[2016-12-30] MEDS: CYCLOBENZAPRINE 5MG TABLET PO PRN (00:09)
[2016-12-30] MEDS: PERCOCET 5MG/325MG TAB PO PRN (04:11)
[2016-12-30] MEDS: LEVOTHYROXINE 0.125 MG TAB (125 MCG) PO SCH (05:44)
[2016-12-30 06:00] VITALS: BP 168/72
[2016-12-30 06:57] LABS: BASO # 0.1 K/mm3 (0.0-0.2); BASO % 0.8 % (0.0-1.0); EOS # 0.2 K/mm3 (0.0-0.50); EOS % 2.6 % (0.0-3.0); LARGE UNSTAINED CELL # 0.2 K/mm3 (0.0-0.4); LARGE UNSTAINED CELL % 2.9 % (0.0-4.0); LYMPH # 1.7 K/mm3 (1.5-4.5); LYMPH % 21.6 % (24.0-44.0); MEAN CORPUSCULAR HEMOGLOBIN 31.6 pg (27.0-33.0); MEAN CORPUSCULAR HGB CONC 34.4 g/dl (32.0-36.5); MEAN CORPUSCULAR VOLUME 91.8 fl (80.0-96.0); MONO # 0.6 K/mm3 (0.0-0.8); MONO % 7.4 % (0.0-5.0); NEUTROPHILS # 5.2 K/mm3 (1.8-7.7); NEUTROPHILS % 64.7 % (36.0-66.0); PLATELET COUNT, AUTOMATED 311 k/mm3 (150-450); RED CELL DISTRIBUTION WIDTH 12.9 % (11.5-14.5)
[2016-12-30 07:15] LABS: ANION GAP 6 MEQ/L (8-16); BLOOD UREA NITROGEN 25 MG/DL (7-18); CALCIUM LEVEL 8.6 MG/DL (8.8-10.2); CARBON DIOXIDE LEVEL 30 MEQ/L (21-32); CHLORIDE LEVEL 104 MEQ/L (98-107); GLOMERULAR FILTRATION RATE > 60.0 (>42); GLUCOSE, FASTING 103 MG/DL (83-110); POTASSIUM SERUM 3.9 MEQ/L (3.5-5.1); SODIUM LEVEL 140 MEQ/L (136-145)
[2016-12-30 08:30] VITALS: BP 152/86
[2016-12-30] MEDS: PERCOCET 5MG/325MG TAB PO SCH ×3 (08:34→20:56)
[2016-12-30] MEDS: ESCITALOPRAM OXALATE 10 MG TAB (LEXAPRO) PO SCH (09:18)
[2016-12-30] MEDS: ENOXAPARIN 40 MG/0.4 ML SYRINGE (J1650) SC SCH (09:19)
[2016-12-30] MEDS: ANALGESIC BALM CRM 120 GM TOP SCH ×4 (09:20→20:58)
--- NOTE | 2016-12-30 11:40 | CR.PDOC ---
General Date of Consultation: December 29, 2016 Reason for Consultation/CC The patient is a 71-year-old male admitted with a reason for visit of FALL. History of Present Illness HISTORY OF PRESENT ILLNESS: Dr Pedro was asked for consult regarding findings of cervical spinal cord compression as noted on cervical MRI performed on 12/29/16. Pt is accompanied by his . Mr Rodrigez is a pleasant 71 year old male who was admitted after a fall with head injury secondary to a cough and syncopal episode. His provides most of the history. She states he began having weakness in his arms and neck pain after his fall. He is typically very active around the house. ALLERGIES: Please see below. HOME MEDICATIONS: Please see below. PHYSICAL EXAMINATION: VITAL SIGNS: Please see below. GENERAL APPEARANCE: He is lying comfortable on the bed. Alert. NEURO: Upper extremities are intact to vibration. Decreased sensation to vibration in lower extremities bilaterally. Muscle strength is weak in the upper extremities; 4-/5 bilaterally. Strength in lower extremities is 5/5 bilaterally. Reflexes are diffusely hyper throughout. He has ankle clonus bilaterally. Montoya's sign is negative. There is visual overshooting bilaterally with finger to nose testing. Selam: bradykinesia and dysmetria in upper extremities bilaterally. LABORATORY DATA: Please see below. DIAGNOSTIC DATA: CT cervical, 12/25/16. No acute fracture or traumatic injury. Just osteophyte complexes with degenerative disc disease at C4/C5, C5/C6, and C6/C7. MRI cervical, 12/29/16. Limited MRI study of the cervical spine, incomplete. 1. Large hemangioma T3. 2. No fracture or collapse. 3. Degenerative spondylosis C4 through C7. Central canal stenosis C4-5, C5-6 and C6-7.4. Moderate sized disc protrusion centrally at C5-6 producing cord compression. This appears to be chronic and unchanged from December 26, 2015 although it is incompletely seen. No signal change in spinal cord, no acute injury. PLAN/RECOMMENDATIONS: 1. Degenerative spinal stenosis with loss of cervical lordosis. 2. Cervical myeloradiculopathy. Recommend based on history of disease and fact patient has tendency to fall posterior decompression and fusion for compression of spinal cord. Discussed findings on exam and imaging with patient and his . We explained the risk and natural history of disease. She will discuss this with family and PCP regarding decision for further management. Recommend use of soft C-collar for comfort. Thank you for the consultation. Erlinda Hollingsworth, KUSH-C Dr Pedro. Vital Signs/I&O Vital Signs Date Time Temp Pulse Resp B/P (MAP) Pulse Ox O2 Delivery O2 Flow Rate FiO2 12/29/16 15:02 16 12/29/16 06:00 98.1 78 136/81 (99) 90 Room Air I&O- Last 24 Hours up to 6 AM 12/29/16 06:00 Intake Total 1540 ml Output Total 1050 ml Balance 490 ml Laboratory Data 24H Labs Laboratory Tests 2 12/29/16 06:22: White Blood Count 7.4, Red Blood Count 4.71, Hemoglobin 14.6, Hematocrit 43.5, Mean Corpuscular Volume 92.4, Mean Corpuscular Hemoglobin 31.0, Mean Corpuscular Hemoglobin Concent 33.6, Red Cell Distribution Width 13.1, Platelet Count 289, Neutrophils (%) (Auto) 60.5, Lymphocytes (%) (Auto) 23.0L, Monocytes (%) (Auto) 8.1H, Eosinophils (%) (Auto) 4.1H, Basophils (%) (Auto) 0.7, Neutrophils # (Auto) 4.5, Lymphocytes # (Auto) 1.7, Monocytes # (Auto) 0.6, Eosinophils # (Auto) 0.3, Basophils # (Auto) 0.0, Large Unclassified Cells % 3.6 , Large Unclassified Cells # 0.3, Anion Gap 6L, Glomerular Filtration Rate > 60.0, Blood Urea Nitrogen 20H, Creatinine 0.71, Sodium Level 137, Potassium Level 3.7, Chloride Level 104, Carbon Dioxide Level 27, Calcium Level 8.1L 12/29/16 10:27: Aspartate Amino Transf (AST/SGOT) 29, Alanine Aminotransferase (ALT/SGPT) 36, Alkaline Phosphatase 56, Total Bilirubin 0.7, Direct Bilirubin 0.2, Ammonia 49H , Total Creatine Kinase 483#H, Creatine Kinase MB 1.5, Creatine Kinase MB Relative Index 0.31, Troponin I < 0.02, Total Protein 7.3, Albumin 3.5, Albumin/ Globulin Ratio 0.92L CBC/BMP Laboratory Tests 12/29/16 06:22 Red Blood Count 4.71, Mean Corpuscular Volume 92.4, Mean Corpuscular Hemoglobin 31.0, Mean Corpuscular Hemoglobin Concent 33.6, Red Cell Distribution Width 13.1 , Neutrophils (%) (Auto) 60.5, Lymphocytes (%) (Auto) 23.0 L, Monocytes (%) ( Auto) 8.1 H, Eosinophils (%) (Auto) 4.1 H, Basophils (%) (Auto) 0.7, Neutrophils # (Auto) 4.5, Lymphocytes # (Auto) 1.7, Monocytes # (Auto) 0.6, Eosinophils # (Auto) 0.3, Basophils # (Auto) 0.0, Calcium Level 8.1 L Allergies Coded Allergies: Molds & Smuts (Verified Allergy, Unknown, 05/02/16) Home Medications Scheduled (Azelastine HCl) 0.15 % Spr, 2 SPRAYS NA DAILY, (Reported) Amlodipine Besylate (Amlodipine Besylate) 5 Mg Tab, 5 MG PO QHS, (Reported) Escitalopram Oxalate (Escitalopram Oxalate) 20 Mg Tab, 20 MG PO DAILY, (Reported ) Levocetirizine Hydrochloride (Levocetirizine Dihydrochl) 5 Mg Tab, 5 MG PO QHS, (Reported) Levothyroxine Sodium (Synthroid) 125 Mcg Tab, 125 MCG PO DAILY, (Reported) Losartan Potassium (Losartan Potassium) 50 Mg Tab, 50 MG PO QHS, (Reported) Simvastatin (Simvastatin) 20 Mg Tab, 20 MG PO QHS, (Reported) Scheduled PRN Albuterol/Ipratropium (Combivent Respimat 20-100 Mcg/Act) 1 Aer Aer, 1 PUFF INH QID PRN for SOB/WHEEZING, (Reported) JAUN HOLLINGSWORTH PA-C December 29, 2016 18:29
[2016-12-30 14:00] VITALS: BP 116/74
--- NOTE | 2016-12-30 17:03 | CR.PDOC ---
General Reason for Consultation/CC The patient is a 71-year-old male admitted with a reason for visit of FALL. History of Present Illness PLAN/RECOMMENDATIONS: Recommend neurology consult for dizziness and syncope. Question cardiac or neurologic etiology? Recommend psych evaluation to assess mental competency. At this moment, Mr Rodrigez is declining neurosurgical intervention regarding his spinal cord compression. If he changes his mind or wishes to discuss neurosurgical options again, please let us know and he is welcome to follow up in the office. Thank you for the consultation. Dr Mayela Hollingsworth, RPA-C Vital Signs/I&O Vital Signs Date Time Temp Pulse Resp B/P (MAP) Pulse Ox O2 Delivery O2 Flow Rate FiO2 12/30/16 15:59 12 12/30/16 14:00 98.9 92 116/74 (88) 93 Room Air I&O- Last 24 Hours up to 6 AM 12/30/16 06:00 Intake Total 10 ml Output Total 800 ml Balance -790 ml Laboratory Data 24H Labs Laboratory Tests 2 12/30/16 06:40: White Blood Count 8.0, Red Blood Count 4.87, Hemoglobin 15.4, Hematocrit 44.7, Mean Corpuscular Volume 91.8, Mean Corpuscular Hemoglobin 31.6, Mean Corpuscular Hemoglobin Concent 34.4, Red Cell Distribution Width 12.9, Platelet Count 311, Neutrophils (%) (Auto) 64.7, Lymphocytes (%) (Auto) 21.6L, Monocytes (%) (Auto) 7.4H, Eosinophils (%) (Auto) 2.6, Basophils (%) (Auto) 0.8, Neutrophils # (Auto) 5.2, Lymphocytes # (Auto) 1.7, Monocytes # (Auto) 0.6, Eosinophils # (Auto) 0.2, Basophils # (Auto) 0.1, Large Unclassified Cells % 2.9 , Large Unclassified Cells # 0.2, Anion Gap 6L, Glomerular Filtration Rate > 60.0, Blood Urea Nitrogen 25H, Creatinine 0.80, Sodium Level 140, Potassium Level 3.9, Chloride Level 104, Carbon Dioxide Level 30, Calcium Level 8.6L CBC/BMP Laboratory Tests 12/30/16 06:40 Red Blood Count 4.87, Mean Corpuscular Volume 91.8, Mean Corpuscular Hemoglobin 31.6, Mean Corpuscular Hemoglobin Concent 34.4, Red Cell Distribution Width 12.9 , Neutrophils (%) (Auto) 64.7, Lymphocytes (%) (Auto) 21.6 L, Monocytes (%) ( Auto) 7.4 H, Eosinophils (%) (Auto) 2.6, Basophils (%) (Auto) 0.8, Neutrophils # (Auto) 5.2, Lymphocytes # (Auto) 1.7, Monocytes # (Auto) 0.6, Eosinophils # ( Auto) 0.2, Basophils # (Auto) 0.1, Calcium Level 8.6 L Allergies Coded Allergies: Molds & Smuts (Verified Allergy, Unknown, 05/02/16) Home Medications Scheduled (Azelastine HCl) 0.15 % Spr, 2 SPRAYS NA DAILY, (Reported) Amlodipine Besylate (Amlodipine Besylate) 5 Mg Tab, 5 MG PO QHS, (Reported) Escitalopram Oxalate (Escitalopram Oxalate) 20 Mg Tab, 20 MG PO DAILY, (Reported ) Levocetirizine Hydrochloride (Levocetirizine Dihydrochl) 5 Mg Tab, 5 MG PO QHS, (Reported) Levothyroxine Sodium (Synthroid) 125 Mcg Tab, 125 MCG PO DAILY, (Reported) Losartan Potassium (Losartan Potassium) 50 Mg Tab, 50 MG PO QHS, (Reported) Simvastatin (Simvastatin) 20 Mg Tab, 20 MG PO QHS, (Reported) Scheduled PRN Albuterol/Ipratropium (Combivent Respimat 20-100 Mcg/Act) 1 Aer Aer, 1 PUFF INH QID PRN for SOB/WHEEZING, (Reported) JAUN HOLLINGSWORTH PA-C December 30, 2016 17:03
[2016-12-30] MEDS: LOSARTAN 50 MG TAB PO SCH (20:55)
[2016-12-30] MEDS: amLODIPine 5 MG TAB PO SCH (20:56)
[2016-12-30] MEDS: SIMVASTATIN 20 MG TAB PO SCH (20:56)
[2016-12-30 22:00] VITALS: BP 130/80
[2016-12-31] MEDS: PERCOCET 5MG/325MG TAB PO PRN ×3 (03:21→18:30)
[2016-12-31] MEDS: LEVOTHYROXINE 0.125 MG TAB (125 MCG) PO SCH (05:43)
[2016-12-31 06:00] VITALS: BP 141/91
[2016-12-31 06:52] LABS: BASO # 0.1 K/mm3 (0.0-0.2); BASO % 1.1 % (0.0-1.0); EOS # 0.3 K/mm3 (0.0-0.50); EOS % 3.2 % (0.0-3.0); LARGE UNSTAINED CELL # 0.3 K/mm3 (0.0-0.4); LARGE UNSTAINED CELL % 3.6 % (0.0-4.0); LYMPH # 2.4 K/mm3 (1.5-4.5); LYMPH % 26.4 % (24.0-44.0); MEAN CORPUSCULAR HEMOGLOBIN 30.9 pg (27.0-33.0); MEAN CORPUSCULAR HGB CONC 34.3 g/dl (32.0-36.5); MEAN CORPUSCULAR VOLUME 89.9 fl (80.0-96.0); MONO # 0.7 K/mm3 (0.0-0.8); MONO % 8.4 % (0.0-5.0); NEUTROPHILS # 4.6 K/mm3 (1.8-7.7); NEUTROPHILS % 57.4 % (36.0-66.0); PLATELET COUNT, AUTOMATED 321 k/mm3 (150-450); RED CELL DISTRIBUTION WIDTH 13.1 % (11.5-14.5); WHITE BLOOD COUNT 8.1 K/mm3 (4.0-10.0)
[2016-12-31 07:10] LABS: ANION GAP 5 MEQ/L (8-16); BLOOD UREA NITROGEN 26 MG/DL (7-18); CALCIUM LEVEL 8.6 MG/DL (8.8-10.2); CARBON DIOXIDE LEVEL 30 MEQ/L (21-32); CHLORIDE LEVEL 104 MEQ/L (98-107); CREATININE FOR GFR 0.74 MG/DL (0.70-1.30); GLOMERULAR FILTRATION RATE > 60.0 (>42); GLUCOSE, FASTING 98 MG/DL (83-110); POTASSIUM SERUM 3.8 MEQ/L (3.5-5.1); SODIUM LEVEL 139 MEQ/L (136-145)
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
[2016-12-31] MEDS: ANALGESIC BALM CRM 120 GM TOP SCH ×4 (10:14→21:00)
[2016-12-31] MEDS: ESCITALOPRAM OXALATE 10 MG TAB (LEXAPRO) PO SCH (10:15)
[2016-12-31] MEDS: ENOXAPARIN 40 MG/0.4 ML SYRINGE (J1650) SC SCH (10:15)
[2016-12-31] MEDS: PERCOCET 5MG/325MG TAB PO SCH ×3 (10:34→21:19)
[2016-12-31 14:00] VITALS: BP 135/83
[2016-12-31] MEDS: amLODIPine 5 MG TAB PO SCH (21:18)
[2016-12-31] MEDS: SIMVASTATIN 20 MG TAB PO SCH (21:18)
[2016-12-31] MEDS: LOSARTAN 50 MG TAB PO SCH (21:19)
[2016-12-31 22:00] VITALS: BP 122/85
[2017-01-01] MEDS: PERCOCET 5MG/325MG TAB PO PRN ×2 (03:34→11:20)
[2017-01-01 06:00] VITALS: BP 124/89
[2017-01-01] MEDS: LEVOTHYROXINE 0.125 MG TAB (125 MCG) PO SCH (06:34)
[2017-01-01 07:06] LABS: BASO # 0.1 K/mm3 (0.0-0.2); BASO % 1.6 % (0.0-1.0); EOS # 0.3 K/mm3 (0.0-0.50); EOS % 4.5 % (0.0-3.0); LARGE UNSTAINED CELL # 0.2 K/mm3 (0.0-0.4); LARGE UNSTAINED CELL % 3.2 % (0.0-4.0); LYMPH # 2.2 K/mm3 (1.5-4.5); LYMPH % 33.1 % (24.0-44.0); MEAN CORPUSCULAR HEMOGLOBIN 31.5 pg (27.0-33.0); MEAN CORPUSCULAR HGB CONC 34.1 g/dl (32.0-36.5); MEAN CORPUSCULAR VOLUME 92.4 fl (80.0-96.0); MONO # 0.5 K/mm3 (0.0-0.8); MONO % 7.4 % (0.0-5.0); NEUTROPHILS # 3.4 K/mm3 (1.8-7.7); NEUTROPHILS % 50.2 % (36.0-66.0); PLATELET COUNT, AUTOMATED 339 k/mm3 (150-450); RED CELL DISTRIBUTION WIDTH 13.1 % (11.5-14.5); WHITE BLOOD COUNT 6.7 K/mm3 (4.0-10.0)
[2017-01-01 07:17] LABS: ANION GAP 6 MEQ/L (8-16); BLOOD UREA NITROGEN 27 MG/DL (7-18); CALCIUM LEVEL 8.5 MG/DL (8.8-10.2); CARBON DIOXIDE LEVEL 29 MEQ/L (21-32); CHLORIDE LEVEL 106 MEQ/L (98-107); CREATININE FOR GFR 0.81 MG/DL (0.70-1.30); GLOMERULAR FILTRATION RATE > 60.0 (>42); GLUCOSE, FASTING 102 MG/DL (83-110); POTASSIUM SERUM 3.7 MEQ/L (3.5-5.1); SODIUM LEVEL 141 MEQ/L (136-145)
[2017-01-01 08:15] VITALS: BP 126/74
[2017-01-01 08:30] VITALS: BP 126/74
[2017-01-01] MEDS: ESCITALOPRAM OXALATE 10 MG TAB (LEXAPRO) PO SCH (08:30)
[2017-01-01] MEDS: ENOXAPARIN 40 MG/0.4 ML SYRINGE (J1650) SC SCH (08:31)
[2017-01-01] MEDS: ANALGESIC BALM CRM 120 GM TOP SCH ×4 (08:34→20:13)
[2017-01-01] MEDS: PERCOCET 5MG/325MG TAB PO SCH ×3 (08:44→20:11)
--- NOTE | 2017-01-01 13:02 | IPNPDOC ---
Subjective Date Seen The patient was seen on 01/01/17. Subjective Chief Complaint/HPI The patient is a 71-year-old male admitted with a reason for visit of FALL. Events since last encounter pt seen and examined, still complaining of back pain, no other events or complains, continues to work with physical therapy, no safe discharge plan as of yet, he doesn't meet admission criteria, will move to ALC status Objective Physical Examination General Exam: Positive: Alert, Mild Distress Eye Exam: Positive: PERRLA, Conjunctiva & lids normal Neck Exam: Positive: Supple Chest Exam: Positive: Clear to auscultation, Normal air movement Heart Exam: Positive: Rate Normal Abdomen Exam: Positive: Normal bowel sounds Extremity Exam: Positive: Normal pulses, Negative: Clubbing, Cyanosis, Edema Assessment /Plan Problems (1) Back pain Status: Acute Problem Specific Plan: Consult Specialist Problem Text: * pt was seen by neurosurgery who recommended surgery but pt denied any surgery * he was seen by pain management * continue PT will need rehab * will make pt ALC * pfs consulted (2) Fall Status: Acute Problem Specific Plan: Consult Specialist Problem Text: * with loss of consciousness * pt was monitored on tele on admission with no significant cardia arrhythmias * brain imaging was negative (3) HTN (hypertension) Status: Chronic Response to Treatment: Stable (4) HLD (hyperlipidemia) Status: Chronic Response to Treatment: Stable (5) Hypothyroidism Status: Chronic Response to Treatment: Stable (6) Depression Status: Chronic (7) Anxiety Status: Chronic Response to Treatment: Stable (8) History of prostate cancer Status: Chronic Response to Treatment: Stable (9) COPD (chronic obstructive pulmonary disease) Status: Chronic Response to Treatment: Stable Plan/VTE VTE Prophylaxis Ordered?: Yes VS, I&O, 24H, [facility] Vital Signs/I&O Vital Signs Date Time Temp Pulse Resp B/P (MAP) Pulse Ox O2 Delivery O2 Flow Rate FiO2 01/01/17 11:59 18 01/01/17 08:30 99.5 86 126/74 95 Room Air I&O- Last 24 Hours up to 6 AM 01/01/17 06:00 Intake Total 1200 ml Output Total 300 ml Balance 900 ml Laboratory Data 24H LABS Laboratory Tests 2 01/01/17 06:33: White Blood Count 6.7, Red Blood Count 4.91, Hemoglobin 15.5, Hematocrit 45.4, Mean Corpuscular Volume 92.4, Mean Corpuscular Hemoglobin 31.5, Mean Corpuscular Hemoglobin Concent 34.1, Red Cell Distribution Width 13.1, Platelet Count 339, Neutrophils (%) (Auto) 50.2, Lymphocytes (%) (Auto) 33.1, Monocytes ( %) (Auto) 7.4H, Eosinophils (%) (Auto) 4.5H, Basophils (%) (Auto) 1.6H, Neutrophils # (Auto) 3.4, Lymphocytes # (Auto) 2.2, Monocytes # (Auto) 0.5, Eosinophils # (Auto) 0.3, Basophils # (Auto) 0.1, Large Unclassified Cells % 3.2 , Large Unclassified Cells # 0.2, Anion Gap 6L, Glomerular Filtration Rate > 60.0, Blood Urea Nitrogen 27H, Creatinine 0.81, Sodium Level 141, Potassium Level 3.7, Chloride Level 106, Carbon Dioxide Level 29, Calcium Level 8.5L CBC/BMP Laboratory Tests 01/01/17 06:33 Red Blood Count 4.91, Mean Corpuscular Volume 92.4, Mean Corpuscular Hemoglobin 31.5, Mean Corpuscular Hemoglobin Concent 34.1, Red Cell Distribution Width 13.1 , Neutrophils (%) (Auto) 50.2, Lymphocytes (%) (Auto) 33.1, Monocytes (%) (Auto ) 7.4 H, Eosinophils (%) (Auto) 4.5 H, Basophils (%) (Auto) 1.6 H, Neutrophils # (Auto) 3.4, Lymphocytes # (Auto) 2.2, Monocytes # (Auto) 0.5, Eosinophils # ( Auto) 0.3, Basophils # (Auto) 0.1, Calcium Level 8.5 L ELIAS MORENO DO January 01, 2017 13:02
[2017-01-01 14:00] VITALS: BP 129/67
[2017-01-01] MEDS: tiZANidine 4 MG TAB PO PRN ×2 (14:48→20:12)
[2017-01-01] MEDS: LOSARTAN 50 MG TAB PO SCH (20:12)
[2017-01-01] MEDS: SIMVASTATIN 20 MG TAB PO SCH (20:12)
[2017-01-01] MEDS: amLODIPine 5 MG TAB PO SCH (20:12)
[2017-01-01 22:00] VITALS: BP 145/84
[2017-01-02] MEDS: PERCOCET 5MG/325MG TAB PO PRN ×2 (04:17→13:18)
[2017-01-02 06:00] VITALS: BP 133/83
[2017-01-02] MEDS: tiZANidine 4 MG TAB PO PRN ×2 (06:23→15:49)
[2017-01-02] MEDS: LEVOTHYROXINE 0.125 MG TAB (125 MCG) PO SCH (06:23)
[2017-01-02 06:53] LABS: BASO # 0.1 K/mm3 (0.0-0.2); EOS # 0.3 K/mm3 (0.0-0.50); EOS % 3.8 % (0.0-3.0); LARGE UNSTAINED CELL # 0.2 K/mm3 (0.0-0.4); LARGE UNSTAINED CELL % 2.5 % (0.0-4.0); LYMPH % 25.1 % (24.0-44.0); MEAN CORPUSCULAR HEMOGLOBIN 31.6 pg (27.0-33.0); MEAN CORPUSCULAR HGB CONC 34.1 g/dl (32.0-36.5); MEAN CORPUSCULAR VOLUME 92.8 fl (80.0-96.0); MONO # 0.5 K/mm3 (0.0-0.8); MONO % 6.5 % (0.0-5.0); NEUTROPHILS # 4.9 K/mm3 (1.8-7.7); PLATELET COUNT, AUTOMATED 362 k/mm3 (150-450); RED CELL DISTRIBUTION WIDTH 12.9 % (11.5-14.5)
[2017-01-02 07:45] LABS: ANION GAP 6 MEQ/L (8-16); BLOOD UREA NITROGEN 23 MG/DL (7-18); CALCIUM LEVEL 8.9 MG/DL (8.8-10.2); CARBON DIOXIDE LEVEL 31 MEQ/L (21-32); CHLORIDE LEVEL 105 MEQ/L (98-107); CREATININE FOR GFR 0.87 MG/DL (0.70-1.30); GLOMERULAR FILTRATION RATE > 60.0 (>42); GLUCOSE, FASTING 96 MG/DL (83-110); POTASSIUM SERUM 4.2 MEQ/L (3.5-5.1); SODIUM LEVEL 142 MEQ/L (136-145)
[2017-01-02 08:35] VITALS: BP 125/77
[2017-01-02] MEDS: PERCOCET 5MG/325MG TAB PO SCH ×3 (09:21→19:38)
[2017-01-02] MEDS: ESCITALOPRAM OXALATE 10 MG TAB (LEXAPRO) PO SCH (10:21)
[2017-01-02] MEDS: ENOXAPARIN 40 MG/0.4 ML SYRINGE (J1650) SC SCH (10:23)
[2017-01-02] MEDS: ANALGESIC BALM CRM 120 GM TOP SCH ×4 (10:24→19:38)
[2017-01-02 14:00] VITALS: BP 111/75
[2017-01-02] MEDS ORDERED: MOM 30ML SUSPENSION UDC PO PRN (16:15)
[2017-01-02] MEDS: LOSARTAN 50 MG TAB PO SCH (19:37)
[2017-01-02] MEDS: amLODIPine 5 MG TAB PO SCH (19:37)
[2017-01-02] MEDS: SIMVASTATIN 20 MG TAB PO SCH (19:37)
[2017-01-02 22:00] VITALS: BP 128/87
[2017-01-03] MEDS: tiZANidine 4 MG TAB PO PRN (03:41)
[2017-01-03] MEDS: PERCOCET 5MG/325MG TAB PO PRN ×2 (03:41→13:40)
[2017-01-03] MEDS: LEVOTHYROXINE 0.125 MG TAB (125 MCG) PO SCH (05:52)
[2017-01-03 06:00] VITALS: BP 107/73
[2017-01-03] MEDS ORDERED: MAGNESIUM CITRATE 300 ML BTL PO ONE (07:45)
[2017-01-03] MEDS: ENOXAPARIN 40 MG/0.4 ML SYRINGE (J1650) SC SCH (08:51)
[2017-01-03] MEDS: ESCITALOPRAM OXALATE 10 MG TAB (LEXAPRO) PO SCH (08:51)
[2017-01-03] MEDS: ANALGESIC BALM CRM 120 GM TOP SCH ×4 (08:52→22:18)
[2017-01-03] MEDS: PERCOCET 5MG/325MG TAB PO SCH ×3 (08:52→22:17)
[2017-01-03 14:00] VITALS: BP 108/74
[2017-01-03 22:00] VITALS: BP 120/77
[2017-01-03] MEDS: LOSARTAN 50 MG TAB PO SCH (22:15)
[2017-01-03] MEDS: SIMVASTATIN 20 MG TAB PO SCH (22:15)
[2017-01-03] MEDS: amLODIPine 5 MG TAB PO SCH (22:16)
[2017-01-04 06:00] VITALS: BP 135/88
[2017-01-04] MEDS: LEVOTHYROXINE 0.125 MG TAB (125 MCG) PO SCH (06:48)
[2017-01-04] MEDS: PERCOCET 5MG/325MG TAB PO PRN ×2 (06:49→08:56)
[2017-01-04] MEDS: ESCITALOPRAM OXALATE 10 MG TAB (LEXAPRO) PO SCH (08:56)
[2017-01-04] MEDS: PERCOCET 5MG/325MG TAB PO SCH ×3 (08:57→19:44)
[2017-01-04] MEDS: ENOXAPARIN 40 MG/0.4 ML SYRINGE (J1650) SC SCH (08:57)
[2017-01-04] MEDS: ANALGESIC BALM CRM 120 GM TOP SCH ×4 (09:00→19:45)
[2017-01-04] MEDS ORDERED: MAGNESIUM CITRATE 300 ML BTL PO ONE (10:00)
[2017-01-04] MEDS: DOCUSATE SODIUM 100 MG CAP PO SCH ×2 (11:42→19:43)
[2017-01-04 14:00] VITALS: BP 140/90
[2017-01-04] MEDS: LOSARTAN 50 MG TAB PO SCH (19:44)
[2017-01-04] MEDS: amLODIPine 5 MG TAB PO SCH (19:44)
[2017-01-04] MEDS: SIMVASTATIN 20 MG TAB PO SCH (19:45)
[2017-01-04 22:00] VITALS: BP 110/73
[2017-01-05] MEDS: LEVOTHYROXINE 0.125 MG TAB (125 MCG) PO SCH (05:40)
[2017-01-05 06:00] VITALS: BP 119/73
[2017-01-05] MEDS: ENOXAPARIN 40 MG/0.4 ML SYRINGE (J1650) SC SCH (08:31)
[2017-01-05] MEDS: ANALGESIC BALM CRM 120 GM TOP SCH ×4 (08:32→21:05)
[2017-01-05] MEDS: DOCUSATE SODIUM 100 MG CAP PO SCH ×2 (08:32→21:04)
[2017-01-05] MEDS: ESCITALOPRAM OXALATE 10 MG TAB (LEXAPRO) PO SCH (08:32)
[2017-01-05] MEDS: PERCOCET 5MG/325MG TAB PO SCH ×3 (08:32→21:06)
[2017-01-05] MEDS: tiZANidine 4 MG TAB PO PRN (11:38)
[2017-01-05 14:00] VITALS: BP 104/63
[2017-01-05] MEDS: PERCOCET 5MG/325MG TAB PO PRN (17:20)
[2017-01-05] MEDS: SIMVASTATIN 20 MG TAB PO SCH (21:04)
[2017-01-05] MEDS: amLODIPine 5 MG TAB PO SCH (21:04)
[2017-01-05] MEDS: LOSARTAN 50 MG TAB PO SCH (21:05)
[2017-01-05 22:00] VITALS: BP 120/75
[2017-01-06] MEDS: PERCOCET 5MG/325MG TAB PO PRN ×2 (04:21→13:41)
[2017-01-06] MEDS: LEVOTHYROXINE 0.125 MG TAB (125 MCG) PO SCH (05:01)
[2017-01-06 06:00] VITALS: BP 103/62
[2017-01-06] MEDS: ANALGESIC BALM CRM 120 GM TOP SCH ×4 (09:47→20:37)
[2017-01-06] MEDS: ENOXAPARIN 40 MG/0.4 ML SYRINGE (J1650) SC SCH (09:47)
[2017-01-06] MEDS: PERCOCET 5MG/325MG TAB PO SCH ×3 (09:48→20:35)
[2017-01-06] MEDS: DOCUSATE SODIUM 100 MG CAP PO SCH ×2 (09:48→20:35)
[2017-01-06] MEDS: ESCITALOPRAM OXALATE 10 MG TAB (LEXAPRO) PO SCH (09:48)
[2017-01-06 14:00] VITALS: BP 120/79
[2017-01-06 20:35] VITALS: BP 120/79
[2017-01-06] MEDS: SIMVASTATIN 20 MG TAB PO SCH (20:35)
[2017-01-06] MEDS: amLODIPine 5 MG TAB PO SCH (20:35)
[2017-01-06] MEDS: LOSARTAN 50 MG TAB PO SCH (20:35)
[2017-01-06 22:00] VITALS: BP 141/87
[2017-01-07] MEDS: PERCOCET 5MG/325MG TAB PO PRN ×2 (02:48→13:19)
[2017-01-07 06:00] VITALS: BP 121/81
[2017-01-07] MEDS: LEVOTHYROXINE 0.125 MG TAB (125 MCG) PO SCH (06:05)
[2017-01-07] MEDS: ESCITALOPRAM OXALATE 10 MG TAB (LEXAPRO) PO SCH (09:04)
[2017-01-07] MEDS: DOCUSATE SODIUM 100 MG CAP PO SCH (09:04)
[2017-01-07] MEDS: PERCOCET 5MG/325MG TAB PO SCH (09:04)
[2017-01-07] MEDS: ENOXAPARIN 40 MG/0.4 ML SYRINGE (J1650) SC SCH (09:04)
[2017-01-07] MEDS: ANALGESIC BALM CRM 120 GM TOP SCH (09:05)
[2017-01-07] MEDS ORDERED: PERCOCET PO ×2 (11:56)
[2017-01-07] MEDS ORDERED: COLA100C3 PO (11:56)
--- NOTE | 2017-01-07 14:59 | DS.PDOC ---
Discharge Summary General Date of Admission December 29, 2016 at 10:04 Date of Discharge 01/07/17 Primary Care Physician: CHARMAINE VELASQUEZ DO Attending Physician: LAUREN CASEY MD Specialist/Consultants Involve: LAKEISHA WASHINGTON MD Specialist/Consultants Involve Leyla Marcelino Discharge Summary PROCEDURES PERFORMED DURING STAY: None. ADMITTING/DISCHARGE DIAGNOSES: 1. Head contusion. 2. Syncope secondary to vasovagal episode 3. Cervical spine. Status post head trauma. 4. Lumbar and cervical spine degenerative disc disease- refusing neurosurgery 5. COPD 6. Hypothyroidism 7. Depression and anxiety 8. Hypertension 9. Hyperlipidemia COMPLICATIONS/CHIEF COMPLAINT: FALL. HISTORY OF PRESENT ILLNESS/HOSPITAL COURSE: . This is a 71-year-old male with a past medical history of COPD, hypertension, positive ischemia with several episodes of syncope in the past 2 years all happening when he coughs. The patient states he had a similar episode on the day of admission the head is had onto the door when he fell. states that before the syncopal episode, the patient was sitting on the couch watching TV and coughing. Patient denies any chest pain/palpitations. Patient was observed on telemetry with no arrhythmias noted. He was also noted to have back pain for which MRI of the lumbar and cervical spine was ordered ( see below) patient was evaluated by neurosurgery however refused surgery. He had worked with physical therapy and was seen by pain management for better control of his pain. Patient is currently doing well physical therapy and has been cleared for discharge. DISCHARGE MEDICATIONS: Please see below. ALLERGIES: Please see below. PHYSICAL EXAMINATION ON DISCHARGE Vitals: (see below) General: No acute distress, laying comfortably in bed. HEENT: Moist mucous membranes. Neck: No JVD or lymphadenopathy Cardiac: RRR, No murmurs Pulm: Clear to auscultation b/l. No wheezing, rhonchi Abd: NT/ND + BS Ext: No edema or cyanosis. Strength 5/5 BUE and BLE. LABORATORY DATA: Please see below. IMAGING: MRI Lumbar spine 12/29/16 IMPRESSION: Right posterior disc protrusion at L3-4 with minimal thecal sac compression. Tiny left posterior disc bulge at the L5-S1. Facet hypertrophy bilaterally at L5-S1. No traumatic abnormality. Mild to moderate distension of the urinary bladder. MRI Cervical spine 12/29/16 Impression: Limited MRI study of the cervical spine, incomplete. 1. Large hemangioma T3. 2. No fracture or collapse. 3. Degenerative spondylosis C4 through C7. Central canal stenosis C4-5, C5-6 and C6-7.4. Moderate sized disc protrusion centrally at C5-6 producing cord compression. This appears to be chronic and unchanged from December 26, 2015 although it is incompletely seen. MRA Brain 12/26/16 IMPRESSION: 1. There is no aneurysm or arteriovenous malformation. 2. Atherosclerotic disease as described above. MRI Brain 12/26/16 IMPRESSION: 1. Small vessel ischemic disease. 2. Minimal volume loss. PROGNOSIS: Fair ACTIVITY: As tolerated. DIET: As tolerated. DISCHARGE PLAN/DISPOSITION: 06 Home Health Service. DISCHARGE INSTRUCTIONS: 1. F/u with PCP in 1-2 weeks. F/u with Neurosurgery as needed. DISCHARGE CONDITION: Stable. TIME SPENT ON DISCHARGE: Greater than 30 minutes. Vital Signs/I&Os Vital Signs Date Time Temp Pulse Resp B/P (MAP) Pulse Ox O2 Delivery O2 Flow Rate FiO2 01/07/17 13:19 18 01/07/17 07:30 Room Air 01/07/17 06:00 97.8 72 121/81 (94) 96 I&O- Last 24 Hours up to 6 AM 01/07/17 06:00 Intake Total 1080 ml Balance 1080 ml Discharge Medications Scheduled (Azelastine HCl) 0.15 % Spr, 2 SPRAYS NA DAILY, (Reported) Amlodipine Besylate (Amlodipine Besylate) 5 Mg Tab, 5 MG PO QHS, (Reported) Docusate Sodium (Colace) 100 Mg Cap, 100 MG PO BID Escitalopram Oxalate (Escitalopram Oxalate) 20 Mg Tab, 20 MG PO DAILY, (Reported ) Levocetirizine Hydrochloride (Levocetirizine Dihydrochl) 5 Mg Tab, 5 MG PO QHS, (Reported) Levothyroxine Sodium (Synthroid) 125 Mcg Tab, 125 MCG PO DAILY, (Reported) Losartan Potassium (Losartan Potassium) 50 Mg Tab, 50 MG PO QHS, (Reported) Oxycodone/Acetaminophen (Percocet 5MG/325MG Tablet) 1 Tab Tab, 1 TAB PO TID Simvastatin (Simvastatin) 20 Mg Tab, 20 MG PO QHS, (Reported) Scheduled PRN Albuterol/Ipratropium (Combivent Respimat 20-100 Mcg/Act) 1 Aer Aer, 1 PUFF INH QID PRN for SOB/WHEEZING, (Reported) Oxycodone/Acetaminophen (Percocet 5MG/325MG Tablet) 1 Tab Tab, 1 TAB PO Q4HP PRN for MODERATE PAIN (PS 5-7) Allergies Coded Allergies: Molds & Smuts (Verified Allergy, Unknown, 05/02/16) LAUREN CASEY MD January 07, 2017 14:59
== END 2017-01-07 13:37 | disposition home health service (06) | DRG 312 ==
LOC: EDBD 20:56 → M ED 21:56 → M ED INP 12-26 03:23 → INTOOBSV 12-26 03:23 → M PCU 12-26 04:34 → M MS5PR 12-27 13:17 → OBSVTOIN 12-29 10:04
PROVIDERS: ADMIT Internal Medicine; ATTEND General Practice
DX: R55 Syncope and collapse (principal); M50.022 Cervical disc disorder at C5-C6 level with myelopathy; M48.02 Spinal stenosis, cervical region; J44.9 Chronic obstructive pulmonary disease, unspecified; E03.9 Hypothyroidism, unspecified; D18.00 Hemangioma unspecified site; F41.9 Anxiety disorder, unspecified; F32.9 Major depressive disorder, single episode, unspecified; I10 Essential (primary) hypertension; J30.1 Allergic rhinitis due to pollen; M47.812 Spondylosis without myelopathy or radiculopathy, cervical region; S00.93XA Contusion of unspecified part of head, initial encounter; E78.5 Hyperlipidemia, unspecified; W01.198A Fall on same level from slipping, tripping and stumbling with subsequent striking against other object, initial encounter; Y92.019 Unspecified place in single-family (private) house as the place of occurrence of the external cause; Y93.01 Activity, walking, marching and hiking; Y99.9 Unspecified external cause status; Z79.899 Other long term (current) drug therapy; Z85.46 Personal history of malignant neoplasm of prostate; Z82.49 Family history of ischemic heart disease and other diseases of the circulatory system

== ENCOUNTER 2018-07-06 08:22 | Day surgery (SDC) | payer MEDICARE, BC ==
[2018-07-06] MEDS: LIDOCAINE 1% SDV 5 ML VIAL As Ordered (06:44)
[~2018-07-06 08:22] MED LIST: ACETAMINOPHEN 325 MG TAB PO; MIDAZOLAM INJ 2 MG/2 ML VIAL (J2250) As Ordered; PHENYLEPHRINE HCL 10 % OPHTH. SOL 5ML OD; fentaNYL 100 MCG/2 ML INJECTION (J3010) As Ordered
[2018-07-06] MEDS: CYCLOPENTOLATE 2% OPHTH SOLN 2ML BTL OD (09:30)
[2018-07-06] MEDS: PHENYLEPHRINE 2.5% OPHTH SOL 2ML OD (09:30)
[2018-07-06] MEDS: TROPICAMIDE 1% OPHTH SOLN 2ML OD (09:31)
[2018-07-06] MEDS: OFLOXACIN 0.3 % (OCUFLOX) OPTH SOL 5ML OD (09:31)
[2018-07-06] MEDS: LIDOCAINE 3.5 % 1ML OPHTH TOPICAL GEL OU (09:31)
[2018-07-06] MEDS: POVIDONE-IODINE 5% OPHTH PREP SOL 30ML As Ordered (10:57)
[2018-07-06] MEDS: HEALON DUET PRO(HEALON 10MG/ML 0.55ML & HEALON ENDOCOAT 30MG/ML 0.85ML) As Ordered (10:57)
[2018-07-06] MEDS: TRIAMCINOLONE PRES FR 40 MG/ML 1ML(TRIESENCE)(OR EYE ONLY)(J3300 PER 1MG) As Ordered (10:58)
[2018-07-06] MEDS: MOXIFLOXACIN IN BSS 0.25MG/0.25ML INTRACAMERAL INJ (OR EYE ONLY)(J2280) As Ordered (10:58)
[2018-07-06] MEDS: BSS with VANC/TOB/EPI for EYE CASES IR (10:58)
[2018-07-06] MEDS: AcetaZOLAMIDE 500 MG ER CAP PO (11:30)
[2018-07-06] MEDS ORDERED: TRIMETHOBENZAMIDE 300 MG CAP PO (11:30)
[2018-07-06] MEDS ORDERED: ONDANSETRON 4MG/2ML VIAL (J2405) IV (11:30)
== END 2018-07-06 11:46 | disposition home or self-care (01) ==
LOC: M SDC 08:22
DX: H26.9 Unspecified cataract (principal); I10 Essential (primary) hypertension; E78.5 Hyperlipidemia, unspecified; E03.9 Hypothyroidism, unspecified; M12.9 Arthropathy, unspecified; J44.9 Chronic obstructive pulmonary disease, unspecified; Z91.09 Other allergy status, other than to drugs and biological substances; Z79.899 Other long term (current) drug therapy; Z85.46 Personal history of malignant neoplasm of prostate; Z72.0 Tobacco use
CPT/HCPCS: 66984

== ENCOUNTER → 2019-09-26 | Outpatient (REF) | payer MEDICARE, BC ==
[~2019-09-26] MED LIST changes: -ACETAMINOPHEN 325 MG TAB PO; +AMLO5TAB6 PO; +AZEL0.055; +COLA100C5 PO; +COMBAER6 INH; +ESCI20TA PO; +LEVO125T4 PO; +LEVO137T2 PO; +LEVOTAB10 PO; +LOSA50TA88 PO; -MIDAZOLAM INJ 2 MG/2 ML VIAL (J2250) As Ordered; +PERCOCET PO; -PHENYLEPHRINE HCL 10 % OPHTH. SOL 5ML OD; +SIMV20TA22 PO; +TYLE500T78 PO; -fentaNYL 100 MCG/2 ML INJECTION (J3010) As Ordered
== END ==
LOC: M LAB REF 16:45
PROVIDERS: ATTEND Internal Medicine
DX: N39.0 Urinary tract infection, site not specified (principal)

== ENCOUNTER → 2022-02-26 | Outpatient (REF) | payer MEDICARE, BC ==
[~2022-02-26] MED LIST changes: +AMLO1TAB24 PO; -AMLO5TAB6 PO; -ESCI20TA PO; +ESCI20TA16 PO; +LOSA50TA28 PO; -LOSA50TA88 PO
== END ==
LOC: M LAB REF 12:18
PROVIDERS: ATTEND Physician Assistant
DX: Z11.52 Encounter for screening for COVID-19 (principal)

== ENCOUNTER → 2022-04-03 | Outpatient (REF) | payer MEDICARE, BC | LOC: M SFHCDERM 12:43 | PROVIDERS: ATTEND Nurse Practitioner Family | DX: C44.41 Basal cell carcinoma of skin of scalp and neck (principal) ==

== ENCOUNTER → 2022-05-29 | Outpatient (REF) | LOC: M PLAIMG 11:13 | PROVIDERS: ATTEND Internal Medicine | DX: R06.02 Shortness of breath (principal) ==

== ENCOUNTER → 2022-06-19 | Outpatient (REF) | payer MEDICARE, BC | LOC: M SFHCDERM 14:19 | PROVIDERS: ATTEND Dermatology | DX: Z48.02 Encounter for removal of sutures (principal) ==

== ENCOUNTER → 2023-04-08 | Outpatient (REF) | payer MEDICARE, BC | LOC: M SFHCDERM 17:49 | PROVIDERS: ATTEND Nurse Practitioner Family | DX: C44.519 Basal cell carcinoma of skin of other part of trunk (principal) ==

== ENCOUNTER → 2023-10-29 | Outpatient (REF) | payer MEDICARE, BC | LOC: M SFHCDERM 12:33 | PROVIDERS: ATTEND Nurse Practitioner Family | DX: C44.319 Basal cell carcinoma of skin of other parts of face (principal) ==

== ENCOUNTER → 2023-11-12 | Outpatient (REF) | payer MEDICARE, BC | LOC: M LAB REF 07:41 | PROVIDERS: ATTEND Surgery | DX: C44.519 Basal cell carcinoma of skin of other part of trunk (principal) ==

== ENCOUNTER → 2024-01-13 | Outpatient (REF) | payer MEDICARE, BC | LOC: M SFHCDERM 17:58 | PROVIDERS: ATTEND Dermatology | DX: L72.0 Epidermal cyst (principal) ==

== ENCOUNTER → 2024-05-12 | Outpatient (REF) | payer MEDICARE, BC ==
[~2024-05-12] MED LIST changes: -AZEL0.055; +AZEL1SPR4
== END ==
LOC: M SFHCDERM 13:15
PROVIDERS: ATTEND Nurse Practitioner Family
DX: C44.519 Basal cell carcinoma of skin of other part of trunk (principal)

== ENCOUNTER → 2025-04-26 | Outpatient (REF) | payer MEDICARE, BC | LOC: M SFHCDERM 17:23 | PROVIDERS: ATTEND Nurse Practitioner Family | DX: L57.0 Actinic keratosis (principal) ==